=== PATIENT | female | born 1970 | race Caucasian/White ===

== ENCOUNTER 2016-10-30 21:29 | Emergency (ER) | payer OTHER ==
[2016-10-30 21:55] VITALS: O2SAT 96
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
[2016-10-30] MEDS ORDERED: HYDROcodone 10MG/APAP 325MG 1 EA TAB PO ONE (22:30)
[2016-10-30] MEDS ORDERED: ORPHENADRINE CITRATE 30 MG/ML AMP IM ONE (22:30)
[2016-10-30] MEDS ORDERED: KETOROLAC TROMETHAMINE INJ 30 MG/ML VIAL IM ONE (22:30)
[2016-10-30 23:00] VITALS: BP 161/108; TEMP 97
== END 2016-10-30 22:59 | disposition home or self-care (01) ==
LOC: ER 21:29
DX: M79.1 Myalgia (principal); I10 Essential (primary) hypertension; E07.9 Disorder of thyroid, unspecified; Z86.19 Personal history of other infectious and parasitic diseases; Z87.891 Personal history of nicotine dependence; Z63.0 Problems in relationship with spouse or partner
CPT/HCPCS: J1885; J2360

== ENCOUNTER 2017-02-19 03:44 | Emergency (ER) | payer OTHER ==
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
[2017-02-19] MEDS ORDERED: diazePAM 5 MG TAB PO ONE (04:08)
[2017-02-19 05:11] VITALS: BP 108/72; TEMP 96.6; O2SAT 93
== END 2017-02-19 05:12 | disposition home or self-care (01) ==
LOC: ER 03:44
DX: F15.980 Other stimulant use, unspecified with stimulant-induced anxiety disorder (principal); I10 Essential (primary) hypertension; F31.9 Bipolar disorder, unspecified; E07.9 Disorder of thyroid, unspecified; Z87.891 Personal history of nicotine dependence

== ENCOUNTER 2017-03-13 18:02 | Emergency (ER) | payer OTHER | END 2017-03-13 18:16 | disposition left against medical advice (07) | LOC: ER 18:02 | DX: Z53.21 Procedure and treatment not carried out due to patient leaving prior to being seen by health care provider (principal) ==

== ENCOUNTER 2017-03-14 11:40 | Emergency (ER) | payer OTHER ==
[2017-03-14 11:53] VITALS: TEMP 97.4; O2SAT 96
[2017-03-14] MEDS ORDERED: LISINOPRIL 10 MG TAB PO ONE (11:55)
--- NOTE | 2017-03-14 11:58 | ED.PDOC ---
History of Present Illness - General Chief Complaint: Cardiovascular Problem Stated Complaint: Elevated BP Time Seen by Provider: 03/14/17 11:50 Source: patient Exam Limitations: no limitations - History of Present Illness Initial Comments: the patient is a 47-year-old female presenting to emergency room secondary to being out of her lisinopril 10 mg for the last 2 weeks. She feels like her blood pressure is high. Her blood pressures are around 140/100 here this morning. She has no focal neurological deficits. She has not had any chest pain or shortness of breath. No syncope. No real headache. She is mainly anxious. Timing/Duration: unsure Severity: mild Improving Factors: nothing Worsening Factors: nothing Associated Symptoms: denies symptoms Allergies/Adverse Reactions: Allergies NO KNOWN ALLERGY Allergy (Verified 03/14/17 11:49) Home Medications: Ambulatory Orders Lisinopril 10 mg PO DAILY 12/24/14 Lisinopril [Prinivil] 10 mg PO DAILY #14 tab 03/14/17 Review of Systems - Review of Systems Constitutional: States: no symptoms reported EENTM: States: no symptoms reported Respiratory: States: no symptoms reported Cardiology: States: no symptoms reported Gastrointestinal/Abdominal: States: no symptoms reported Genitourinary: States: no symptoms reported Musculoskeletal: States: no symptoms reported Skin: States: no symptoms reported Neurological: States: anxiety Endocrine: States: no symptoms reported All other Systems: No Change from Baseline Past Medical History (General) - Patient Medical History Hx Seizures: No Hx Stroke: No Hx Dementia: No Hx Asthma: No Hx of COPD: No Hx Cardiac Disorders: No Hx Congestive Heart Failure: No Hx Pacemaker: No Hx Hypertension: Yes Hx Thyroid Disease: Yes Hx Diabetes: No Hx Gastroesophageal Reflux: Yes Hx Renal Disease: No Hx Cancer: No Hx of HIV: No Hx Hepatitis C: Yes Hx MRSA: No MRSA Source:: Wound Surgical History: Hysterectomy - Vaccination History Hx Tetanus, Diphtheria Vaccination: No Hx Influenza Vaccination: No Hx Pneumococcal Vaccination: No - Social History Hx Tobacco Use: Yes Hx Chewing Tobacco Use: No Hx Alcohol Use: No Hx Substance Use: Yes Hx Substance Use Treatment: Yes Hx Depression: Yes Hx Physical Abuse: No Hx Emotional Abuse: No Hx Suspected Abuse: No - Female History Patient is a Female of Child Bearing Age (10 -59 yrs old): No - hysterectomy Patient : No Family Medical History - Family History Mother Family History: Unknown Living Status: Hx Family Hypertension: Yes - parents Hx Family Diabetes: Yes - multiple family members Physical Exam - Physical Exam General Appearance: Alert, Anxious, No apparent distress Eye Exam: bilateral normal Ears, Nose, Throat: hearing grossly normal, normal pharynx Neck: supple Respiratory: no respiratory distress, no accessory muscle use Cardiovascular/Chest: normal peripheral pulses, no edema Peripheral Pulses: dorsalis pedis,right: 2+, dorsalis pedis,left: 2+ Gastrointestinal/Abdominal: other - obese Rectal Exam: deferred Extremity: non-tender, normal inspection, no pedal edema, normal capillary refill 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 The patient will be refilled for 2 weeks on her lisinopril 10 mg daily. She needs to follow-up with her new primary care doctor. ER warnings are given for any significant worsening. No other workup indicated at this time. First dose was given here. Departure - Departure Clinical Impression: Anxiety about health Hypertension Qualifiers: Hypertension type: unspecified Qualified Code(s): I10 - Essential (primary) hypertension Disposition: Discharge to Home or Self Care Condition: Fair Departure Forms: ED Discharge - Pt. Copy, Patient Portal Self Enrollment Instructions: High Blood Pressure Diet: low salt diet Activity: increase activity as tolerated Prescriptions: Lisinopril [Prinivil] 10 mg PO DAILY #14 tab Home Medications: Ambulatory Orders Lisinopril 10 mg PO DAILY 12/24/14 Lisinopril [Prinivil] 10 mg PO DAILY #14 tab 03/14/17 Additional Instructions: the patient is a 47-year-old female presenting secondary to anxiety over her blood pressure. The patient will be refilled for 2 weeks on her lisinopril 10 mg daily. She needs to follow-up with her new primary care doctor. ER warnings are given for any significant worsening. No other workup indicated at this time. First dose was given here.
[2017-03-14 12:34] VITALS: BP 136/99
== END 2017-03-14 12:19 | disposition home or self-care (01) ==
LOC: ER 11:40
DX: I10 Essential (primary) hypertension (principal); F41.9 Anxiety disorder, unspecified; E07.9 Disorder of thyroid, unspecified; Z86.19 Personal history of other infectious and parasitic diseases

== ENCOUNTER 2017-04-11 23:46 | Emergency (ER) | payer OTHER ==
--- NOTE | 2017-04-12 01:03 | ED.PDOC ---
History of Present Illness - General Chief Complaint: Blood Pressure Problem Stated Complaint: High Blood Pressure Time Seen by Provider: 04/12/17 00:52 Source: patient Exam Limitations: no limitations - History of Present Illness Initial Comments: Malina Rosado 47 y/o female stated that she ran out of her high blood pressure medication and thyroid pills for the last 2-3 weeks and since moving back to [facility] unable to fill up Rx for her medications since she is waiting for her insurance coverage to be transferred back to [place].Denies chest pains,headache,N/V.Stated has some occasional foot swelling and feels heart raced if stressed out. Timing/Duration: intermittent Severity: moderate Improving Factors: nothing Worsening Factors: other - ran out of medication for 2 weeks Associated Symptoms: denies symptoms Allergies/Adverse Reactions: Allergies NO KNOWN ALLERGY Allergy (Verified 04/11/17 23:59) Home Medications: Ambulatory Orders Lisinopril 10 mg PO DAILY 12/24/14 Lisinopril [Prinivil] 10 mg PO DAILY #14 tab 03/14/17 Lisinopril 10 mg PO DAILY #30 tab 04/12/17 Thyroid [[place] Thyroid] 60 mg PO DAILY #20 tab 04/12/17 Review of Systems - Review of Systems Constitutional: States: no symptoms reported EENTM: States: no symptoms reported Respiratory: States: no symptoms reported Cardiology: States: no symptoms reported Gastrointestinal/Abdominal: States: no symptoms reported Genitourinary: States: no symptoms reported All other Systems: Reviewed and Negative, No Change from Baseline Past Medical History (General) - Patient Medical History Hx Seizures: No Hx Stroke: No Hx Dementia: No Hx Asthma: Yes Hx of COPD: No Hx Cardiac Disorders: Yes - HTN Hx Congestive Heart Failure: No Hx Pacemaker: No Hx Hypertension: Yes Hx Thyroid Disease: Yes Hx Diabetes: Yes Hx Gastroesophageal Reflux: Yes Hx Renal Disease: No Hx Cancer: No Hx of HIV: No Hx Hepatitis C: No Hx MRSA: No MRSA Source:: Wound Surgical History: other - hysterectomy, - Vaccination History Hx Tetanus, Diphtheria Vaccination: No - patient unsure Hx Influenza Vaccination: No Hx Pneumococcal Vaccination: No Immunizations Up to Date: No - Social History Hx Tobacco Use: Yes Hx Chewing Tobacco Use: No Hx Alcohol Use: No Hx Substance Use: No Hx Substance Use Treatment: No Hx Depression: No Feels Threatened In Home Enviroment: No Feels Threatened In a Relationship: No Hx Physical Abuse: No Hx Emotional Abuse: No Hx Suspected Abuse: No - Female History Patient is a Female of Child Bearing Age (10 -59 yrs old): Yes Patient : No Family Medical History - Family History Mother Family History: Unknown Living Status: Hx Family Hypertension: Yes - parents Hx Family Diabetes: Yes - multiple family members Physical Exam - Physical Exam General Appearance: Alert, Comfortable, No apparent distress Eye Exam: bilateral normal Ears, Nose, Throat: hearing grossly normal, normal ENT inspection Neck: non-tender, full range of motion, supple Respiratory: chest non-tender, lungs clear, normal breath sounds Cardiovascular/Chest: normal peripheral pulses, regular rate, rhythm, no murmur Peripheral Pulses: radial,right: 2+, radial,left: 2+ Gastrointestinal/Abdominal: normal bowel sounds, non tender, soft, no organomegaly Extremity: non-tender, no pedal edema, no calf tenderness Neurologic: oriented x 3 Skin Exam: normal color, warm/dry Progress - Progress Progress: 04/12/17 01:05 Last Vital Signs Temp 98.5 F 04/11/17 23:59 Pulse 89 04/12/17 00:10 Resp 18 04/12/17 00:10 BP 139/92 04/11/17 23:59 Pulse Ox 97 04/11/17 23:59 - EKG/XRAY/CT CT Ordered: No Departure - Departure Clinical Impression: Has run out of medications, Essential hypertension, History of hypothyroidism Time of Disposition: 01:09 Disposition: Discharge to Home or Self Care Condition: Fair Departure Forms: ED Discharge - Pt. Copy, Patient Portal Self Enrollment Instructions: DI for High Blood Pressure Prescriptions: Lisinopril 10 mg PO DAILY #30 tab Thyroid [[place] Thyroid] 60 mg PO DAILY #20 tab Home Medications: Ambulatory Orders Lisinopril 10 mg PO DAILY 12/24/14 Lisinopril [Prinivil] 10 mg PO DAILY #14 tab 03/14/17 Lisinopril 10 mg PO DAILY #30 tab 04/12/17 Thyroid [[place] Thyroid] 60 mg PO DAILY #20 tab 04/12/17 Additional Instructions: Need to make appointment with [phone]
[2017-04-12] MEDS ORDERED: LISINOPRIL 10 MG TAB PO ONE (01:13)
[2017-04-12] MEDS ORDERED: THYROID 60 MG TAB PO ONE (01:21)
[2017-04-12] MEDS ORDERED: ALUMINUM & MAGNESIUM HYDROXIDE 30 ML UD PO ONE (02:43)
[2017-04-12 02:52] VITALS: BP 167/102; TEMP 97.9; O2SAT 99
[2017-04-12] MEDS ORDERED: THYROID 60 MG TAB PO SCH (09:00)
== END 2017-04-12 02:51 | disposition home or self-care (01) ==
LOC: ER 23:46
DX: I10 Essential (primary) hypertension (principal); E03.9 Hypothyroidism, unspecified; E11.9 Type 2 diabetes mellitus without complications; Z79.899 Other long term (current) drug therapy; Z87.891 Personal history of nicotine dependence

== ENCOUNTER 2017-04-15 21:17 | Emergency (ER) | payer OTHER ==
[2017-04-15 21:46] VITALS: O2SAT 98
[2017-04-15] MEDS ORDERED: MAGNESIUM HYDROXIDE 30 ML UD PO ONE (22:29)
[2017-04-15] MEDS ORDERED: FAMOTIDINE 20 MG TAB PO ONE (22:29)
--- NOTE | 2017-04-15 22:32 | ED.PDOC ---
History of Present Illness - General Chief Complaint: Abdominal Pain Stated Complaint: abd pain, elevated BP Time Seen by Provider: 04/15/17 21:31 Source: patient Exam Limitations: no limitations - History of Present Illness Initial Comments: The patient is a 47-year-old female presenting to the emergency room secondary to lower abdominal cramping and some mild urinary frequency today. No fevers. No nausea or vomiting. No diarrhea. She does have long-standing constipation.she is concerned about her blood pressure being elevated but it is not very elevated here tonight. Timing/Duration: unsure Severity: mild Improving Factors: nothing Worsening Factors: nothing Associated Symptoms: loss of appetite, malaise Allergies/Adverse Reactions: Allergies NO KNOWN ALLERGY Allergy (Verified 04/15/17 21:31) Home Medications: Ambulatory Orders Lisinopril 10 mg PO DAILY 12/24/14 Lisinopril [Prinivil] 10 mg PO DAILY #14 tab 03/14/17 Lisinopril 10 mg PO DAILY #30 tab 04/12/17 Thyroid [[place] Thyroid] 60 mg PO DAILY #20 tab 04/12/17 Review of Systems - Review of Systems Constitutional: States: no symptoms reported EENTM: States: no symptoms reported Respiratory: States: no symptoms reported Cardiology: States: no symptoms reported Gastrointestinal/Abdominal: States: see HPI Genitourinary: States: see HPI Musculoskeletal: States: no symptoms reported Skin: States: no symptoms reported Neurological: States: no symptoms reported Endocrine: States: no symptoms reported All other Systems: No Change from Baseline Past Medical History (General) - Patient Medical History Hx Seizures: No Hx Stroke: No Hx Dementia: No Hx Asthma: Yes Hx of COPD: No Hx Cardiac Disorders: Yes - HTN Hx Congestive Heart Failure: No Hx Pacemaker: No Hx Hypertension: Yes Hx Thyroid Disease: Yes Hx Diabetes: Yes Hx Gastroesophageal Reflux: Yes Hx Renal Disease: No Hx Cancer: No Hx of HIV: No Hx Hepatitis C: No Hx MRSA: No MRSA Source:: Wound - Vaccination History Hx Tetanus, Diphtheria Vaccination: No - patient unsure Hx Influenza Vaccination: No Hx Pneumococcal Vaccination: No - Social History Hx Tobacco Use: Yes Hx Chewing Tobacco Use: No Hx Alcohol Use: No Hx Substance Use: No Hx Substance Use Treatment: No Hx Depression: No Hx Physical Abuse: No Hx Emotional Abuse: No Hx Suspected Abuse: No - Female History Patient : No - Triage Comment ED Triage Comment: they live in [facility] Family Medical History - Family History Mother Family History: Unknown Living Status: Hx Family Hypertension: Yes - parents Hx Family Diabetes: Yes - multiple family members Physical Exam - Physical Exam General Appearance: Alert, Anxious, No apparent distress Eye Exam: bilateral normal Ears, Nose, Throat: hearing grossly normal, normal ENT inspection, normal pharynx Neck: non-tender, supple Respiratory: lungs clear, normal breath sounds, no respiratory distress, no accessory muscle use Cardiovascular/Chest: normal peripheral pulses, regular rate, rhythm, no edema Peripheral Pulses: radial,right: 2+, radial,left: 2+ Gastrointestinal/Abdominal: non tender, soft Rectal Exam: deferred Back Exam: no CVA tenderness, no vertebral tenderness Extremity: non-tender, no pedal edema, no calf tenderness, normal capillary refill 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 She has had some urinary symptoms but there is no evidence of any urinary tract infection on urinalysis. She needs to keep herself well hydrated. She was given 1 dose of milk of magnesia tonight. She was additionally given a dose of famotidine help with any gastritis issues. ER warnings were given. She needs to keep follow- up with her primary care doctor. - Results/Orders Results/Orders: Laboratory Tests 04/15/17 21:46 Urine Color Yellow Urine Appearance Clear Urine pH 5.5 Ur Specific [place] 1.010 Urine Protein Negative Urine Glucose (UA) Negative Urine Ketones Negative Urine Blood Negative Urine Nitrite Negative Urine Bilirubin Negative Urine Urobilinogen 0.2 Ur Leukocyte Esterase Negative Urine RBC 0 Urine WBC 0 Ur Epithelial Cells 0-1 Urine Bacteria Rare Departure - Departure Clinical Impression: Constipation Qualifiers: Constipation type: unspecified constipation type Qualified Code(s): K59.00 - Constipation, unspecified Disposition: Discharge to Home or Self Care Condition: Fair Departure Forms: ED Discharge - Pt. Copy, Patient Portal Self Enrollment Instructions: DI for Constipation Diet: regular diet Activity: increase activity as tolerated Home Medications: Ambulatory Orders Lisinopril 10 mg PO DAILY 12/24/14 Lisinopril [Prinivil] 10 mg PO DAILY #14 tab 03/14/17 Lisinopril 10 mg PO DAILY #30 tab 04/12/17 Thyroid [[place] Thyroid] 60 mg PO DAILY #20 tab 04/12/17 Additional Instructions: The patient is presenting with abdominal discomfort today. She has had some urinary symptoms but there is no evidence of any urinary tract infection on urinalysis. She needs to keep herself well hydrated. She was given 1 dose of milk of magnesia tonight. She was additionally given a dose of famotidine help with any gastritis issues. ER warnings were given. She needs to keep follow- up with her primary care doctor.
[2017-04-15 22:47] VITALS: BP 135/90; TEMP 97
== END 2017-04-15 22:47 | disposition home or self-care (01) ==
LOC: ER 21:17
DX: K59.00 Constipation, unspecified (principal); I10 Essential (primary) hypertension; E11.9 Type 2 diabetes mellitus without complications; E07.9 Disorder of thyroid, unspecified

== ENCOUNTER 2020-01-20 13:27 | Emergency (ER) | payer OTHER ==
[2020-01-20 14:02] VITALS: TEMP 97.6
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
[2020-01-20] MEDS ORDERED: predniSONE 20 MG TAB PO ONE (15:20)
[2020-01-20] MEDS ORDERED: CYCLOBENZAPRINE HCL 5 MG TAB PO ONE (15:20)
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
[2020-01-20] MEDS ORDERED: CYCLOBENZAPRINE HCL 5 MG TAB ONE (15:31)
[2020-01-20 15:38] VITALS: BP 159/80; O2SAT 99
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
== END 2020-01-20 15:49 | disposition home or self-care (01) ==
LOC: ER 13:27
DX: S39.012A Strain of muscle, fascia and tendon of lower back, initial encounter (principal); M54.2 Cervicalgia; I10 Essential (primary) hypertension; J45.909 Unspecified asthma, uncomplicated; E07.9 Disorder of thyroid, unspecified; E11.9 Type 2 diabetes mellitus without complications; K21.9 Gastro-esophageal reflux disease without esophagitis; Y09 Assault by unspecified means; Z79.899 Other long term (current) drug therapy; Z87.891 Personal history of nicotine dependence; Y92.9 Unspecified place or not applicable
CPT/HCPCS: 72040; 72100; J7512

== ENCOUNTER → 2020-02-01 | Outpatient (CLI) | payer OTHER | LOC: YCFC.O 08:24 | PROVIDERS: ATTEND Nurse Practitioner Family | DX: I10 Essential (primary) hypertension (principal); E11.9 Type 2 diabetes mellitus without complications; E03.9 Hypothyroidism, unspecified; E66.01 Morbid (severe) obesity due to excess calories ==